=== PATIENT | female | born 1970 | race Caucasian/White ===

== ENCOUNTER 2016-11-04 09:12 | Emergency (ER) | payer OTHER ==
--- NOTE | 2016-11-04 09:23 | PDOC ---
History of Present Illness - General Chief Complaint: Injury Stated Complaint: INJURY AND PAIN TO LEFT LEG AND FOOT Time Seen by Provider: 11/04/16 09:16 - History of Present Illness Initial Comments: 11/04/16 09:19 Chief complaint: Pain left knee and ankle History of present illness: Patient twisted her knee and ankle several days ago when she tripped and fell. Persistent pain in the lateral ankle and medial knee. No distal numbness tingling pain or weakness. Fully ambulatory. Review of systems: Denies chest pain, shortness of breath, abdominal pain, nausea, vomiting, diarrhea, pain or injury to the head neck chest abdomen spine or other extremities Past medical history: Prior left knee surgery many years ago, otherwise noncontributory for this injury Social/family history reviewed and noncontributory Physical exam: Alert and oriented no acute distress Ambulatory. moderate limp, no ataxia or instability of gait Left knee without deformity, swelling, erythema, or warmth. No stress tenderness or laxity of the MCL, or LCL. Lockman is negative. Patella and patellar retinaculum intact and nontender Left ankle: Minimal swelling over the anterolateral ligaments. No point tenderness malleoli or fifth metatarsal. No deformity. No erythema or warmth. Pulses full and symmetric. No distal sensory or motor deficits. Impression: Ankle, knee sprain, rule out fracture, although this is unlikely given the present physical findings X-ray and further orthopedic management depending on results. 11/04/16 09:56 Past History - Past Medical History Allergies/Adverse Reactions: Allergies Allergy/AdvReac Type Severity Reaction Status Date / Time No Known Allergies Allergy Verified 11/04/16 09:14 Home Medications: Ambulatory Orders Lisinopril/Hydrochlorothiazide [Lisinopril-Hctz 20-25 mg Tab] 1 each PO BID Ibuprofen [Motrin -] 400 mg PO QID PRN #20 tablet 11/04/16 Metformin HCl 500 mg PO BID 11/04/16 HTN: Yes Psychiatric Problems: Yes (panic attacks) - Surgical History Cholecystectomy: Yes Orthopedic Surgery: Yes - Psycho/Social/Smoking Cessation Hx Anxiety: No Suicidal Ideation: No Smoking History: Never smoked Have you smoked in the past 12 months: No Hx Alcohol Use: No Drug/Substance Use Hx: No Substance Use Type: None Hx Substance Use Treatment: No Medical Decision Making - Medical Decision Making 11/04/16 10:46 X-rays of the knee and ankle show significant DJD but no definite fractures. Attempt to install a knee immobilizer was unsuccessful due to the size of the patient's thigh. An Stephen wrap was used instead for the knee and ankle, and the patient was given a cane. She was adequately ambulatory. She was advised rest ice and elevation, no work, and recheck within diversity specialist as directed. She was adequately ambulatory and in no significant pain or other distress upon discharge with her daughter to follow-up as directed. *DC/Admit/Observation/Transfer Diagnosis at time of Disposition: Sprained ankle Qualifiers: Encounter type: initial encounter Involved ligament of ankle: tibiofibular ligament Laterality: left Qualified Code(s): S93.432A - Sprain of tibiofibular ligament of left ankle, initial encounter Sprain, knee Qualifiers: Encounter type: initial encounter Involved ligament of knee: unspecified ligament Laterality: left Qualified Code(s): S83.92XA - Sprain of unspecified site of left knee, initial encounter DJD (degenerative joint disease) of knee Qualifiers: Osteoarthritis type: post-traumatic Laterality: left Qualified Code(s): M17.32 - Unilateral post-traumatic osteoarthritis, left knee - Discharge Dispostion Disposition: HOME Condition at time of disposition: Stable Admit: No - Prescriptions Prescriptions: Ibuprofen [Motrin -] 400 mg PO QID PRN #20 tablet PRN Reason: Pain - Referrals Referrals: Deonte Nesbitt MD [Staff Physician] - 1 week - Patient Instructions Printed Discharge Instructions: DI for Ankle Sprain, DI for Knee Sprain, How to Apply an Stephen Wrap Print Language: LITHUANIAN - Post Discharge Activity Work/School Note: Back to Work
[2016-11-04 09:24] VITALS: BP 148/77; PULSE 88; TEMP 98.3; BMI 44.1
== END 2016-11-04 10:11 | disposition home or self-care (01) ==
LOC: FER 09:12
DX: S93.432A Sprain of tibiofibular ligament of left ankle, initial encounter (principal); S83.92XA Sprain of unspecified site of left knee, initial encounter; M17.32 Unilateral post-traumatic osteoarthritis, left knee; W01.0XXA Fall on same level from slipping, tripping and stumbling without subsequent striking against object, initial encounter; Y93.9 Activity, unspecified; Y92.9 Unspecified place or not applicable; I10 Essential (primary) hypertension; F41.0 Panic disorder [episodic paroxysmal anxiety]
CPT/HCPCS: 73560-TC-LT; 73610-TC-LT; 99282-25

== ENCOUNTER 2017-09-17 10:44 | Emergency (ER) | payer OTHER ==
[2017-09-17 10:49] VITALS: BP 147/82; PULSE 86; TEMP 98.3; BMI 44.6
--- NOTE | 2017-09-17 11:00 | PDOC ---
History of Present Illness - General Chief Complaint: Rash Stated Complaint: RASH Time Seen by Provider: 09/17/17 10:47 - History of Present Illness Initial Comments: 09/17/17 10:55 46 F with h/o HTN presents to ED with pruritic rash to BLE x 3 days. Pt denies any new exposures, denies any new lotions or soaps. Did not eat any thing new. Pt states that the rash is very itchy but not painful. Denies rash anywhere else on her body. Denies F/C. Denies h/o asthma or allergies. Past History - Past Medical History Allergies/Adverse Reactions: Allergies Allergy/AdvReac Type Severity Reaction Status Date / Time No Known Allergies Allergy Verified 09/17/17 10:45 Home Medications: Ambulatory Orders Lisinopril/Hydrochlorothiazide [Lisinopril-Hctz 20-25 mg Tab] 1 each PO BID Metformin HCl 500 mg PO BID 11/04/16 Amlodipine Besylate [Norvasc -] 10 mg PO DAILY 09/17/17 COPD: No Diabetes: Yes HTN: Yes Psychiatric Problems: Yes (panic attacks) - Surgical History Cholecystectomy: Yes Orthopedic Surgery: Yes - Suicide/Smoking/Psychosocial Hx Smoking History: Never smoked Have you smoked in the past 12 months: No Hx Alcohol Use: No Drug/Substance Use Hx: No Substance Use Type: None Hx Substance Use Treatment: No Review of Systems - Review of Systems Comments:: 09/17/17 10:56 "GENERAL/CONSTITUTIONAL: No fever or chills. No weakness. HEAD, EYES, EARS, NOSE AND THROAT: No change in vision. No ear pain or discharge. No sore throat. CARDIOVASCULAR: No chest pain or shortness of breath. RESPIRATORY: No cough, wheezing, or hemoptysis. GASTROINTESTINAL: No nausea, vomiting, diarrhea or constipation. GENITOURINARY: No dysuria, frequency, or change in urination. MUSCULOSKELETAL: No joint or muscle swelling or pain. No neck or back pain. SKIN: + rash to BLE NEUROLOGIC: No headache, vertigo, loss of consciousness, or change in strength/ sensation. ENDOCRINE: No increased thirst. No abnormal weight change. HEMATOLOGIC/LYMPHATIC: No anemia, easy bleeding, or history of blood clots. ALLERGIC/IMMUNOLOGIC: No hives or skin allergy. " *Physical Exam - Vital Signs Last Vital Signs Temp Pulse Resp BP Pulse Ox 98.3 F 86 17 147/82 100 09/17/17 10:45 09/17/17 10:45 09/17/17 10:45 09/17/17 10:45 09/17/17 10:45 - Physical Exam Comments: 09/17/17 10:56 "GENERAL: Awake, alert, and fully oriented, in no acute distress. HEAD: No signs of trauma EYES: PERRLA, EOMI, sclera anicteric, conjunctiva clear ENT: Auricles normal inspection, hearing grossly normal, nares patent, oropharynx clear without exudates. Moist mucosa NECK: Nontender, no stepoffs, Normal ROM, supple, no lymphadenopathy, JVD, or masses LUNGS: Breath sounds equal, clear to auscultation bilaterally. No wheezes, and no crackles HEART: Regular rate and rhythm, normal S1 and S2, no murmurs, rubs or gallops ABDOMEN: Soft, nontender, normoactive bowel sounds. No guarding, no rebound. No masses EXTREMITIES: Normal range of motion, no edema. No clubbing or cyanosis. No cords, erythema, or tenderness NEUROLOGICAL: Cranial nerves II through XII intact. 5/5 strength and sensation in all extremities, Normal speech, normal gait, normal cerebellar function SKIN: + morbilliform rash to BLE with excoriations, no signs of cellulitis, no pustules/cysts, no induration or fluctuance, no mucosal involvement Medical Decision Making - Medical Decision Making 09/17/17 10:57 46 F with likely eczematous or contact dermatitis rash. No clinical signs of viral infection. No signs of systemic illness or joint involvement. - Topical steroids - Benadryl PRN - F/u PMD Pt is well appearing, with normal vitals. Clinically stable for DC at this time. I discussed the physical exam findings, ancillary test results and final diagnoses with the patient. I answered all of the patient's questions. The patient was satisfied with the care received and felt comfortable with the discharge plan and treatment plan. The patient agrees to follow up with the primary care physician within 24-72 hours. *DC/Admit/Observation/Transfer Diagnosis at time of Disposition: Rash - Discharge Dispostion Disposition: HOME Condition at time of disposition: Stable - Referrals - Patient Instructions Printed Discharge Instructions: DI for Rash Additional Instructions: Take benadryl at night for itching to help you sleep. Use the steroid cream twice daily. Do not scratch, as this can lead to skin infections. Follow up with your primary doctor within 1 week for a re-evaluation. If you experience worsening rash, redness, pain, fevers, or any other concerning symptoms, return to the ER immediately. - Post Discharge Activity - Attestations Physician Attestion: 09/17/17 11:00 I, Dr. Boy Bravo MD, attest that this document has been prepared under my direction and personally reviewed by me in its entirety. I further attest, that it accurately reflects all work, treatment, procedures and medical decision -making performed by me.
== END 2017-09-17 11:17 | disposition home or self-care (01) ==
LOC: FER 10:44
DX: R21 Rash and other nonspecific skin eruption (principal); I10 Essential (primary) hypertension; E11.9 Type 2 diabetes mellitus without complications; F41.0 Panic disorder [episodic paroxysmal anxiety]
CPT/HCPCS: 99281-25

== ENCOUNTER 2019-11-20 19:44 | Emergency (ER) | payer OTHER ==
[2019-11-20 19:57] VITALS: BP 151/92; PULSE 82; TEMP 98.1; BMI 44.9
[2019-11-20] MEDS ORDERED: KETOROLAC TROMETHAMINE 60 MG/2 ML VIAL IM ONE (21:14)
[2019-11-20] MEDS ORDERED: KETOROLAC TROMETHAMINE 60 MG/2 ML VIAL ONE (21:15)
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
== END 2019-11-20 21:36 | disposition home or self-care (01) ==
LOC: FER 19:44
PROC: 3E0233Z Introduction of Anti-inflammatory into Muscle, Percutaneous Approach (ICD-10-PCS; principal; 2019-11-20)
DX: S93.492A Sprain of other ligament of left ankle, initial encounter (principal); M25.572 Pain in left ankle and joints of left foot
CPT/HCPCS: 73610-TC-LT-FY; 73630-TC-LT; 99284-25

== ENCOUNTER 2021-12-11 10:18 | Emergency (ER) | payer OTHER ==
[2021-12-11 10:23] VITALS: BP 138/79; PULSE 69; RESP 18; TEMP 98.3; BMI 31.6
== END 2021-12-11 11:21 | disposition home or self-care (01) ==
LOC: FER 10:18
DX: M67.834 Other specified disorders of tendon, left wrist (principal)
CPT/HCPCS: 73110-TC-LT-FY; 99283-25

== ENCOUNTER 2023-07-16 16:21 | Emergency (ER) | payer OTHER ==
[2023-07-16 16:41] VITALS: BP 143/84; PULSE 64; RESP 15; TEMP 98.4; BMI 33.3
== END 2023-07-16 17:05 | disposition home or self-care (01) ==
LOC: FER 16:21
DX: R21 Rash and other nonspecific skin eruption (principal); L30.9 Dermatitis, unspecified; L01.00 Impetigo, unspecified
CPT/HCPCS: 99283-25

== ENCOUNTER 2023-10-20 07:29 | Emergency (ER) | payer OTHER ==
[2023-10-20 07:53] VITALS: BP 153/90; PULSE 65; RESP 20; TEMP 98.6; BMI 33.3
[2023-10-20] MEDS ORDERED: KETOROLAC TROMETHAMINE 30 MG/1 ML VIAL ONE (08:04)
[2023-10-20] MEDS: KETOROLAC TROMETHAMINE 30 MG/1 ML VIAL IM ONE (08:05)
== END 2023-10-20 09:03 | disposition home or self-care (01) ==
LOC: FER 07:29
PROC: 3E0233Z Introduction of Anti-inflammatory into Muscle, Percutaneous Approach (ICD-10-PCS; principal; 2023-10-20)
DX: M25.512 Pain in left shoulder (principal)
CPT/HCPCS: 73030-TC-LT-FY; 99284-25